=== PATIENT | female | born 1940 | race Caucasian/White ===

== ENCOUNTER 2017-04-23 15:31 | Emergency (ER) | payer MEDICARE, MEDICAID ==
[2017-04-23 15:47] VITALS: BMI 40.6
--- NOTE | 2017-04-23 15:56 | ED PDOC ---
Arrival/HPI - General Chief Complaint: Lower Extremity Problem/Injury Time Seen by Provider: 04/23/17 15:49 Historian: Patient - History of Present Illness Narrative History of Present Illness (Text): 04/23/17 15:42 A 76 year old female presents to the emergency department complaining of left toe pain, swelling and bruising after a mechanical fall 4 days ago. Patient denies any chest pain, head trauma, loss of consciousness, or other complaints at this time. Patient does not want any pain medication at this time. PMD: Dr. Frederick Time/Duration: Other (4 days) Symptom Onset: Sudden Symptom Course: Unchanged Quality: Other Activities at Onset: Rest Context: Home Past Medical History - Provider Review Nursing Documentation Reviewed: Yes - Infectious Disease Hx of Infectious Diseases: None - Cardiac Hx Cardiac Disorders: Yes Hx Cardiac Arrhythmia: Yes Hx AR: Yes ("MANY YEARS AGO") Hx Hypertension: Yes Hx Peripheral Edema: Yes - Pulmonary Hx Respiratory Disorders: Yes Hx Asthma: Yes (NEVER HOSIPALIZED) - Neurological Hx Neurological Disorder: Yes ("FORGETFULLNESS AT TIMES") - HEENT Hx HEENT Disorder: Yes Hx Cataracts: Yes (BILAT.) Other/Comment: HX: TONSILLECTOMY - Renal Hx Renal Disorder: No - Endocrine/Metabolic Hx Endocrine Disorders: Yes Hx Diabetes Mellitus Type 2: Yes - Hematological/Oncological Hx Blood Disorders: Yes Hx Anemia: Yes - Integumentary Hx Dermatological Disorder: Yes Other/Comment: HX: LUMP ON HEAD REMOVED-NO CANCER. HX: 2 LUMPS ON RIGHT RING FINGER-REMOVED - Musculoskeletal/Rheumatological Hx Musculoskeletal Disorders: Yes Hx Arthritis: Yes Hx Back Pain: Yes Hx Degenerative Joint Disease: Yes (KNEES-BILAT. KNEE REPLACEMENTS DONE) Hx Falls: Yes Hx Fractures: Yes (LEFT FOOT) Hx Herniated Disk: Yes (LOWER BACK) Hx Osteoporosis: Yes Hx Rheumatoid Arthritis: Yes Other/Comment: HX: CARPAL TUNNEL SYNDROME- RIGHT. - Gastrointestinal Hx Gastrointestinal Disorders: Yes Hx Gall Bladder Disease: Yes Hx Gastritis: Yes - Genitourinary/Gynecological Hx Genitourinary Disorders: No - Psychiatric Hx Psychophysiologic Disorder: No Hx Substance Use: No - Past Surgical History Past Surgical History: Non-Contributing - Surgical History Hx Appendectomy: Yes Hx Breast Biopsy: Yes (RIGHT BREAST -LUMPECTOMY) Hx Cataract Extraction: Yes (RIGHT EYE) Hx Cholecystectomy: Yes Hx Musculoskeletal Surgery: Yes (RIGHT CARPAL TUNNEL REPAIR) Hx Orthopedic Surgery: Yes (BILAT. KNEE REPLACEMENTS) Hx Tonsillectomy: Yes Other/Comment: HX: 2 LUMPS ON RIGHT RING FINGER REMOVED-NO CANCER. HX: LUMP ON HEAD REMOVED-NO CANCER - Anesthesia Hx Anesthesia: Yes Hx Anesthesia Reactions: Yes (N/V) Hx Malignant Hyperthermia: No - Suicidal Assessment Feels Threatened In Home Enviroment: No Family/Social History - Physician Review Nursing Documentation Reviewed: Yes Family/Social History: Unknown Family HX Smoking Status: Never Smoked Hx Alcohol Use: No Hx Substance Use: No Allergies/Home Meds Allergies/Adverse Reactions: Allergies No Known Allergies Allergy (Verified 12/03/13 19:32) Home Medications: Home Meds Medication Instructions Recorded Confirmed Alendronate [Fosamax] 70 mg PO QWK 12/03/13 01/03/17 Sitagliptin Phos/Metformin HCl 1 tab PO BID 12/03/13 09/06/16 [Janumet Xr 50-500 mg Tablet] Albuterol HFA [Ventolin HFA 90 2 puff IH Q6H PRN 08/29/16 01/03/17 mcg/actuation (8 g)] Aspirin [Ecotrin] 81 mg PO DAILY 08/29/16 01/03/17 Atorvastatin [Lipitor] 20 mg PO HS 08/29/16 01/03/17 Calcium Carbonate/Vitamin D3 1 tab PO BID 08/29/16 01/03/17 [Calcium 600 + Vit D Tablet] Diclofenac Sodium [Voltaren] 100 gm TP DAILY 08/29/16 01/03/17 Donepezil HCl [Aricept] 10 mg PO DAILY 08/29/16 01/03/17 Esomeprazole Magnesium [Nexium] 40 mg PO DAILY 08/29/16 01/03/17 Folic Acid 1 mg PO DAILY 08/29/16 01/03/17 Gabapentin [Neurontin] 300 mg PO BID 08/29/16 01/03/17 Hydrochlorothiazide [Microzide] 12.5 mg PO DAILY 08/29/16 01/03/17 Ibuprofen [Motrin] 600 mg PO TID PRN 08/29/16 01/03/17 Metoprolol Tartrate [Lopressor] 25 mg PO BID 08/29/16 01/03/17 Multivitamin [Multivitamins] 1 each PO DAILY 08/29/16 01/03/17 Potassium Chloride [Klor-Con 10] 10 meq PO DAILY 08/29/16 01/03/17 Ranolazine [Ranexa] 500 mg PO BID 08/29/16 01/03/17 Sucralfate [Carafate] 1 gm PO DAILY 08/29/16 01/03/17 amLODIPine [Norvasc] 5 mg PO DAILY 08/29/16 01/03/17 Home Med 1 tab PO DAILY 01/03/17 01/03/17 Physical Exam - Physical Exam Narrative Physical Exam (Text): - Review of Systems Constitutional: Normal. absent: Fatigue, Weight Change, Fevers Eyes: Normal ENT: Normal Respiratory: Normal absent: SOB, Cough, Sputum Cardiovascular: Normal absent: Chest pain, Palpitations, Syncope Gastrointestinal: Normal absent: Abdominal pain, Diarrhea, Nausea, Vomiting Genitourinary: Normal. absent: Dysuria, Frequency, Hematuria Musculoskeletal: pain/swelling/bruising to the left great toe. absent: Arthralgias, Back Pain, Neck Pain Skin: Normal Neurological: Normal absent: Focal Weakness Endocrine: Normal Hemo/Lymphatic: Normal Psychiatric: Normal - Physical exam Patient appears age appropriate, speaking full sentences without difficulty. - Systems Exam Head: Present: Atraumatic, Normocephalic Pupils: Present: PERRL Extraocular Muscles: Present: EOMI Conjunctiva: Present: Normal Mouth: Present: Moist Mucous Membranes Neck: Present: Normal Range of Motion. No: MIDLINE TENDERNESS, Paraspinal Tenderness Respiratory/Chest: Present: Clear to Auscultation, Good Air Exchange. No: Respiratory Distress, Accessory Muscle Use, Tachypneic Cardiovascular: Present: Regular Rate and Rhythm, Normal S1, S2, Peripheral Pulses Present. No: Murmurs Abdomen: Present: Normal Bowel Sounds, No: Tenderness, Peritoneal Signs, Rebound, Guarding, Distention Back: Present: Normal Inspection. No: Midline Tenderness, Paraspinal Tenderness Upper Extremity: Present: Normal Inspection. No: Cyanosis, Edema Lower Extremity: Present: Diffuse ecchymosis to the left great toe but no swelling. Distal neurovascular intact. No: Edema Neurological: Present: GCS=15, Speech Normal, cranial nerves II through XII fully intact with no cerebellar abnormality, neuro-sensory fully intact. No focal neurological deficits. Skin: Present: Warm, Dry, Normal Color. No: Rashes Lymphatic: Present: OX3, NI, NC Psychiatric: Present: Alert, Oriented x 3, Normal Insight, Normal Concentration Head atraumatic. No nasal bone deformity or tenderness, no facial or jaw pain/ swelling. No neck midline tenderness, thoracic and lumbar spine with no midline tenderness. Pt moving b/l upper and lower extremities without difficulty, 5/5 strength, with full active and passive ROM. Diffuse ecchymosis to the left great toe but no swelling. Distal neurovasc fully intact. Abd soft/nt/nd, no hematomas, no peritoneal signs. Neg. pelvic rock. Vital Signs Reviewed: Yes Vital Signs Temp Pulse Resp BP Pulse Ox 04/23/17 15:31 98.1 F 60 19 146/68 96 Medical Decision Making ED Course and Treatment: 04/23/17 15:42 Impression: A 76 year old female with left great toe pain/swelling/ecchymosis. On physical examination the patient has diffuse ecchymosis of the left great toe but no swelling. Differential Diagnosis include but are not limited to: fracture, sprain Plan: -- Left great toe x-ray -- Reassess and disposition Progress Notes: 04/23/17 16:44 Patient's x-ray shows no acute fractures or dislocations. Interpreted by me. Ambulates with a walker without difficulty States that she feels comfortable being discharged home with outpatient follow- up Pt states she understands to return to the ER right away for new or worsening symptoms or for inability to f/u with PMD or specialist as instructed. Patient states that she fully agrees with and understands discharge instructions. States that she agrees with the plan and disposition. Verbalized and repeated discharge instructions and plan. I have given the patient opportunity to ask any additional questions. - RAD Interpretation Radiology Orders: 04/23/17 15:49 FOOT LEFT GREAT TOE ROUTINE [RAD] Stat - Scribe Statement The provider has reviewed the documentation as recorded by the Aldenibgem Zimmerman Provider Scribe Attestation: All medical record entries made by the Scribe were at my direction and personally dictated by me. I have reviewed the chart and agree that the record accurately reflects my personal performance of the history, physical exam, medical decision making, and the department course for this patient. I have also personally directed, reviewed, and agree with the discharge instructions and disposition. Disposition/Present on Arrival - Present on Arrival Any Indicators Present on Arrival: No History of DVT/PE: No History of Uncontrolled Diabetes: No Urinary Catheter: No History of Decub. Ulcer: No History Surgical Site Infection Following: None - Disposition Have Diagnosis and Disposition been Completed?: Yes Diagnosis: Toe injury Disposition: HOME/ ROUTINE Disposition Time: 16:45 Patient Plan: Discharge Condition: GOOD Discharge Instructions (ExitCare): Foot Contusion (ED) Additional Instructions: PLEASE RETURN TO THE EMERGENCY DEPARTMENT FOR NEW OR WORSENING SYMPTOMS. RETURN RIGHT AWAY IF YOU CANNOT FOLLOW UP WITH YOUR PRIMARY CARE DOCTOR, CLINIC, OR SPECIALIST IN 1-2 DAYS. Please take [id number] Motrin or Tylenol for pain Referrals: Ricardo Frederick MD [Primary Care Provider] - Follow up with primary Marah Sanchez DPM [Staff Provider] - Follow up with primary
[2017-04-23 16:05] VITALS: BP 146/68; PULSE 60; RESP 19; TEMP 98.1; O2SAT 96
--- NOTE | 2017-04-24 09:09 | RAD ---
PROCEDURE: Radiographs of the left great toe. TECHNIQUE:: AP radiograph of the left foot, with oblique and lateral view of the left great toe. COMPARISON: None. FINDINGS: BONES: There is an acute transverse nondisplaced fracture in the midshaft of the distal phalanx of the great toe. Bone alignment and mineralization are normal. There is no bone destruction. JOINTS: There is severe degenerative osteoarthrosis in the 3rd PIP joint and moderate degenerative osteoarthrosis the 1st and 4th PIP joints. There is mild degenerative osteoarthrosis in the 1st MTP joint. SOFT TISSUES: Is mild soft tissue swelling in the great toe OTHER FINDINGS: None. IMPRESSION: Acute transverse nondisplaced fracture in the midshaft of the distal phalanx of the great toe.
--- NOTE | 2017-04-24 15:33 | ED PDOC ---
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
== END 2017-04-23 16:50 | disposition home or self-care (01) ==
LOC: ED 15:31
DX: S99.922A Unspecified injury of left foot, initial encounter (principal); W19.XXXA Unspecified fall, initial encounter

== ENCOUNTER 2017-04-24 16:13 | Emergency (ER) | payer MEDICARE, MEDICAID ==
[2017-04-24 16:14] VITALS: BMI 40.6
[2017-04-24 16:32] VITALS: BP 127/82; PULSE 60; RESP 19; TEMP 98.1; O2SAT 95
--- NOTE | 2017-04-24 16:32 | ED PDOC ---
Arrival/HPI - General Chief Complaint: Lower Extremity Problem/Injury Time Seen by Provider: 04/24/17 16:29 Historian: Patient - History of Present Illness Narrative History of Present Illness (Text): 04/24/17 16:29 76 y/o female, called back by me due to the positive findings noted on the injured toe show fracture on the great toe s/p hit on the edge of the furniture. Pt. has no numbness or tingling, no headache or night sweat, no calf pain, no other medical or psychological complaints. Past Medical History - Provider Review Nursing Documentation Reviewed: Yes - Infectious Disease Hx of Infectious Diseases: None - Cardiac Hx Cardiac Disorders: Yes Hx Cardiac Arrhythmia: Yes Hx WI: Yes ("MANY YEARS AGO") Hx Hypertension: Yes Hx Peripheral Edema: Yes - Pulmonary Hx Respiratory Disorders: Yes Hx Asthma: Yes (NEVER HOSIPALIZED) - Neurological Hx Neurological Disorder: Yes ("FORGETFULLNESS AT TIMES") - HEENT Hx HEENT Disorder: Yes Hx Cataracts: Yes (BILAT.) - Renal Hx Renal Disorder: No - Endocrine/Metabolic Hx Endocrine Disorders: Yes Hx Diabetes Mellitus Type 2: Yes - Hematological/Oncological Hx Blood Disorders: Yes Hx Anemia: Yes - Integumentary Hx Dermatological Disorder: Yes Other/Comment: HX: LUMP ON HEAD REMOVED-NO CANCER. HX: 2 LUMPS ON RIGHT RING FINGER-REMOVED - Musculoskeletal/Rheumatological Hx Musculoskeletal Disorders: Yes Hx Arthritis: Yes Hx Back Pain: Yes Hx Degenerative Joint Disease: Yes (KNEES-BILAT. KNEE REPLACEMENTS DONE) Hx Falls: Yes Hx Fractures: Yes (LEFT FOOT) Hx Herniated Disk: Yes (LOWER BACK) Hx Osteoporosis: Yes Hx Rheumatoid Arthritis: Yes Other/Comment: CARPAL TUNNEL SYNDROME- RIGHT. - Gastrointestinal Hx Gastrointestinal Disorders: Yes Hx Gall Bladder Disease: Yes Hx Gastritis: Yes - Genitourinary/Gynecological Hx Genitourinary Disorders: No - Psychiatric Hx Psychophysiologic Disorder: No Hx Substance Use: No - Past Surgical History Past Surgical History: Non-Contributing - Surgical History Hx Appendectomy: Yes Hx Breast Biopsy: Yes (RIGHT BREAST -LUMPECTOMY) Hx Cataract Extraction: Yes (RIGHT EYE) Hx Cholecystectomy: Yes Hx Musculoskeletal Surgery: Yes (RIGHT CARPAL TUNNEL REPAIR) Hx Orthopedic Surgery: Yes (BILAT. KNEE REPLACEMENTS) Hx Tonsillectomy: Yes Other/Comment: 2 LUMPS ON RIGHT RING FINGER REMOVED-NO CANCER. LUMP ON HEAD REMOVED-NO CANCER - Anesthesia Hx Anesthesia: Yes Hx Anesthesia Reactions: Yes (N/V) Hx Malignant Hyperthermia: No - Suicidal Assessment Feels Threatened In Home Enviroment: No Family/Social History - Physician Review Nursing Documentation Reviewed: Yes Family/Social History: Unknown Family HX Smoking Status: Never Smoked Hx Alcohol Use: No Hx Substance Use: No Allergies/Home Meds Allergies/Adverse Reactions: Allergies No Known Allergies Allergy (Verified 12/03/13 19:32) Home Medications: Home Meds Medication Instructions Recorded Confirmed Alendronate [Fosamax] 70 mg PO QWK 12/03/13 04/24/17 Sitagliptin Phos/Metformin HCl 1 tab PO BID 12/03/13 04/24/17 [Janumet Xr 50-500 mg Tablet] Albuterol HFA [Ventolin HFA 90 2 puff IH Q6H PRN 08/29/16 04/24/17 mcg/actuation (8 g)] Aspirin [Ecotrin] 81 mg PO DAILY 08/29/16 04/24/17 Atorvastatin [Lipitor] 20 mg PO HS 08/29/16 04/24/17 Calcium Carbonate/Vitamin D3 1 tab PO BID 08/29/16 04/24/17 [Calcium 600 + Vit D Tablet] Diclofenac Sodium [Voltaren] 100 gm TP DAILY 08/29/16 04/24/17 Donepezil HCl [Aricept] 10 mg PO DAILY 08/29/16 04/24/17 Esomeprazole Magnesium [Nexium] 40 mg PO DAILY 08/29/16 04/24/17 Folic Acid 1 mg PO DAILY 08/29/16 04/24/17 Gabapentin [Neurontin] 300 mg PO BID 08/29/16 04/24/17 Hydrochlorothiazide [Microzide] 12.5 mg PO DAILY 08/29/16 04/24/17 Metoprolol Tartrate [Lopressor] 25 mg PO BID 08/29/16 04/24/17 Multivitamin [Multivitamins] 1 each PO DAILY 08/29/16 04/24/17 Potassium Chloride [Klor-Con 10] 10 meq PO DAILY 08/29/16 04/24/17 Ranolazine [Ranexa] 500 mg PO BID 08/29/16 04/24/17 Sucralfate [Carafate] 1 gm PO DAILY 08/29/16 04/24/17 amLODIPine [Norvasc] 5 mg PO DAILY 08/29/16 04/24/17 Review of Systems - Review of Systems Constitutional: absent: Fatigue, Fevers Respiratory: absent: SOB, Cough Cardiovascular: absent: Chest Pain Gastrointestinal: absent: Abdominal Pain, Diarrhea, Nausea, Vomiting Musculoskeletal: Arthralgias. absent: Back Pain, Neck Pain Skin: absent: Rash, Pruritis, Skin Lesions, Laceration Neurological: absent: Headache, Dizziness Physical Exam Vital Signs Reviewed: Yes Vital Signs Temp Pulse Resp BP Pulse Ox 04/24/17 16:25 98.1 F 60 19 127/82 95 Temperature: Afebrile Blood Pressure: Normal Pulse: Regular Respiratory Rate: Normal Appearance: Positive for: Well-Appearing, Non-Toxic, Comfortable Pain Distress: Mild Mental Status: Positive for: Alert and Oriented X 3 - Systems Exam Head: Present: Atraumatic, Normocephalic Neck: Present: Normal Range of Motion Respiratory/Chest: Present: Clear to Auscultation, Good Air Exchange. No: Respiratory Distress Cardiovascular: Present: Regular Rate and Rhythm, Normal S1, S2 Abdomen: Present: Normal Bowel Sounds. No: Tenderness, Distention Lower Extremity: Present: Other (Lt. foot: visible and +ttp with ecchymosis noted on the distal aspect of the phalanx, skin intact, no laceration or abrasion, FROM withou limitation, no calf tenderness, negative waters signs, + DPPT pulses, neurovascular intact. ) Medical Decision Making ED Course and Treatment: 04/24/17 16:34 -ferdinand tapping applied with neurovascular intact, post op shoe, pt. has walkers , advised non-weight bearing to the injured toe. -Discharge home with ferdinand tapping, post op shoe, non-weight bearing to the injured toe, take tylenol for pain as needed, follow up with your own pmd and labor arbitrator hearing office within 2 days, return to the ER for any new or worsening signs or symptoms. - RAD Interpretation Radiology Orders: Accession No. : [id number] Patient Name / ID : IZABELA Honeycutt / [id number] Exam Date : 04/23/2017 16:07:08 ( Approved ) Study Comment : Sex / Age : F / 76Y Creator : Irma Wade MD Dictator : Irma Wade MD Supervisor Plastic Sheets : Patrol Guard : Irma Wade MD Approver2 : Report Date : 04/24/2017 09:07:16 My Comment : PROCEDURE: Radiographs of the left great toe. TECHNIQUE:: AP radiograph of the left foot, with oblique and lateral view of the left great toe. COMPARISON: None. FINDINGS: BONES: There is an acute transverse nondisplaced fracture in the midshaft of the distal phalanx of the great toe. Bone alignment and mineralization are normal. There is no bone destruction. JOINTS: There is severe degenerative osteoarthrosis in the 3rd PIP joint and moderate degenerative osteoarthrosis the 1st and 4th PIP joints. There is mild degenerative osteoarthrosis in the 1st MTP joint. SOFT TISSUES: Is mild soft tissue swelling in the great toe OTHER FINDINGS: None. IMPRESSION: Acute transverse nondisplaced fracture in the midshaft of the distal phalanx of the great toe. 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 Disposition/Present on Arrival - Present on Arrival Any Indicators Present on Arrival: No History of DVT/PE: No History of Uncontrolled Diabetes: No Urinary Catheter: No History of Decub. Ulcer: No History Surgical Site Infection Following: None - Disposition Have Diagnosis and Disposition been Completed?: Yes Diagnosis: Toe fracture Disposition: HOME/ ROUTINE Disposition Time: 16:30 Patient Plan: Discharge Condition: GOOD Additional Instructions: Discharge home with ferdinand tapping, post op shoe, non-weight bearing to the injured toe, take tylenol for pain as needed, follow up with your own pmd and labor arbitrator hearing office within 2 days, return to the ER for any new or worsening signs or symptoms. Referrals: Ranjeet Danielson DPM [Staff Provider] - [place] up with primary [facility] [place] - Follow up with primary Forms: WORK NOTE
== END 2017-04-24 16:40 | disposition home or self-care (01) ==
LOC: ED 16:13
DX: S92.422A Displaced fracture of distal phalanx of left great toe, initial encounter for closed fracture (principal); W22.03XA Walked into furniture, initial encounter

== ENCOUNTER 2017-05-16 16:49 | Emergency (ER) | payer MEDICARE, MEDICAID ==
[2017-05-16 16:49] VITALS: BMI 40.6
[2017-05-16 17:03] VITALS: BP 139/65; PULSE 67; RESP 16; TEMP 98.3; O2SAT 98
--- NOTE | 2017-05-16 18:04 | ED PDOC ---
Arrival/HPI - General Chief Complaint: Abnormal Skin Integrity Time Seen by Provider: 05/16/17 17:08 Historian: Patient - History of Present Illness Narrative History of Present Illness (Text): 05/16/17 19:32 76 yo F c/o several day h/o red itchy painful rash to the lower abdomen, hips and buttocks. 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 States that she is here in the ER today because the rash is very itchy and has a burning sensation to them, she feels that the creams rx by her railroad dispatcher is not improving her symptoms, and she could not obtain an appointment today to see her skin doctor. Denies any fever, chills, new medications, new food, changing her soaps / lotions, SOB , facial / tongue swelling. Otherwise has no other complaints. Past Medical History - Provider Review Nursing Documentation Reviewed: Yes - Infectious Disease Hx of Infectious Diseases: None - Cardiac Hx Cardiac Disorders: Yes Hx Cardiac Arrhythmia: Yes Hx DC: Yes ("MANY YEARS AGO") Hx Hypertension: Yes Hx Peripheral Edema: Yes - Pulmonary Hx Respiratory Disorders: Yes Hx Asthma: Yes (NEVER HOSIPALIZED) - Neurological Hx Neurological Disorder: Yes ("FORGETFULLNESS AT TIMES") - HEENT Hx HEENT Disorder: Yes Hx Cataracts: Yes (BILAT.) - Renal Hx Renal Disorder: No - Endocrine/Metabolic Hx Endocrine Disorders: Yes Hx Diabetes Mellitus Type 2: Yes - Hematological/Oncological Hx Blood Disorders: Yes Hx Anemia: Yes - Integumentary Hx Dermatological Disorder: Yes Other/Comment: HX: LUMP ON HEAD REMOVED-NO CANCER. HX: 2 LUMPS ON RIGHT RING FINGER-REMOVED - Musculoskeletal/Rheumatological Hx Musculoskeletal Disorders: Yes Hx Arthritis: Yes Hx Back Pain: Yes Hx Degenerative Joint Disease: Yes (KNEES-BILAT. KNEE REPLACEMENTS DONE) Hx Falls: Yes Hx Fractures: Yes (LEFT FOOT) Hx Herniated Disk: Yes (LOWER BACK) Hx Osteoporosis: Yes Hx Rheumatoid Arthritis: Yes Other/Comment: CARPAL TUNNEL SYNDROME- RIGHT. - Gastrointestinal Hx Gastrointestinal Disorders: Yes Hx Gall Bladder Disease: Yes Hx Gastritis: Yes - Genitourinary/Gynecological Hx Genitourinary Disorders: No - Psychiatric Hx Psychophysiologic Disorder: No Hx Substance Use: No - Past Surgical History Past Surgical History: Non-Contributing - Surgical History Hx Appendectomy: Yes Hx Breast Biopsy: Yes (RIGHT BREAST -LUMPECTOMY) Hx Cataract Extraction: Yes (RIGHT EYE) Hx Cholecystectomy: Yes Hx Musculoskeletal Surgery: Yes (RIGHT CARPAL TUNNEL REPAIR) Hx Orthopedic Surgery: Yes (BILAT. KNEE REPLACEMENTS) Hx Tonsillectomy: Yes Other/Comment: 2 LUMPS ON RIGHT RING FINGER REMOVED-NO CANCER. LUMP ON HEAD REMOVED-NO CANCER - Anesthesia Hx Anesthesia: Yes Hx Anesthesia Reactions: Yes (N/V) Hx Malignant Hyperthermia: No - Suicidal Assessment Feels Threatened In Home Enviroment: No Family/Social History - Physician Review Nursing Documentation Reviewed: Yes Family/Social History: No Known Family HX Smoking Status: Never Smoked Hx Alcohol Use: No Hx Substance Use: No Allergies/Home Meds Allergies/Adverse Reactions: Allergies No Known Allergies Allergy (Verified 05/16/17 17:03) Home Medications: Home Meds Medication Instructions Recorded Confirmed Alendronate [Fosamax] 70 mg PO QWK 12/03/13 05/16/17 Albuterol HFA [Ventolin HFA 90 2 puff IH Q6H PRN 08/29/16 05/16/17 mcg/actuation (8 g)] Aspirin [Ecotrin] 81 mg PO DAILY 08/29/16 05/16/17 Atorvastatin [Lipitor] 20 mg PO HS 08/29/16 05/16/17 Calcium Carbonate/Vitamin D3 1 tab PO BID 08/29/16 05/16/17 [Calcium 600 + Vit D Tablet] Diclofenac Sodium [Voltaren] 100 gm TP DAILY 08/29/16 05/16/17 Donepezil HCl [Aricept] 10 mg PO DAILY 08/29/16 05/16/17 Folic Acid 1 mg PO DAILY 08/29/16 05/16/17 Gabapentin [Neurontin] 300 mg PO BID 08/29/16 05/16/17 Hydrochlorothiazide [Microzide] 12.5 mg PO DAILY 08/29/16 05/16/17 Metoprolol Tartrate [Lopressor] 25 mg PO BID 08/29/16 05/16/17 Multivitamin [Multivitamins] 1 each PO DAILY 08/29/16 05/16/17 Ranolazine [Ranexa] 500 mg PO BID 08/29/16 05/16/17 Sucralfate [Carafate] 1 gm PO DAILY 08/29/16 05/16/17 amLODIPine [Norvasc] 5 mg PO DAILY 08/29/16 05/16/17 Ammonium Lactate 12% [Lac-Hydrin] 1 appl TP DAILY 05/16/17 05/16/17 Betamethasone/Propylene Glyc 15 gm TP DAILY 05/16/17 05/16/17 [Betamethasone Dp Aug 0.05% Crm] Celecoxib [Celebrex] 200 mg PO DAILY 05/16/17 05/16/17 Clotrimazole 1% Cream [Lotrimin 1% 0 applic TOP DAILY 05/16/17 05/16/17 CREAM] Esomeprazole Magnesium [Nexium] 40 mg PO DAILY 05/16/17 05/16/17 Ferrous Sulfate [Feosol] 325 mg PO DAILY 05/16/17 05/16/17 Folic Acid 1 mg PO DAILY 05/16/17 05/16/17 Ibuprofen 100 mg PO TID 05/16/17 05/16/17 Methotrexate Sodium [Trexall] 5 mg PO QWK 05/16/17 05/16/17 Potassium Chloride [Klor-Con 10] 10 meq PO DAILY 05/16/17 05/16/17 Sitagliptin Phos/Metformin HCl 1 each PO BID 05/16/17 05/16/17 [Janumet 50-500 mg Tablet] hydroCHLOROthiazide [Microzide] 12.5 mg PO DAILY 05/16/17 05/16/17 Review of Systems - Review of Systems Constitutional: Normal. absent: Fatigue, Weight Change, Fevers ENT: Normal. absent: Hearing Changes, Tinnitus, Sinus Congestion Respiratory: Normal. absent: SOB, Cough, Sputum Musculoskeletal: Normal. absent: Arthralgias, Back Pain, Neck Pain Skin: Normal, Rash. absent: Pruritis, Skin Lesions Physical Exam Vital Signs Reviewed: Yes Vital Signs Temp Pulse Resp BP Pulse Ox 05/16/17 17:03 98.3 F 67 16 139/65 98 05/16/17 17:02 98.3 F 67 16 139/65 98 Temperature: Afebrile Blood Pressure: Normal Pulse: Regular Respiratory Rate: Normal Appearance: Positive for: Well-Appearing, Non-Toxic, Comfortable Pain Distress: None Mental Status: Positive for: Alert and Oriented X 3 - Systems Exam Head: Present: Atraumatic, Normocephalic Pupils: Present: PERRL Extroacular Muscles: Present: EOMI Conjunctiva: Present: Normal Ears: Present: Normal Mouth: Present: Moist Mucous Membranes, Normal Lips Pharnyx: Present: Normal ((+) several erythematous nontender circular lesions with a skin colored central clearing located on the buttock, hips and lower abdomen) Neck: Present: Normal Range of Motion. No: MIDLINE TENDERNESS Respiratory/Chest: Present: Clear to Auscultation, Good Air Exchange. No: Respiratory Distress, Accessory Muscle Use Cardiovascular: Present: Regular Rate and Rhythm, Normal S1, S2. No: Murmurs Back: Present: Normal Inspection. No: Midline Tenderness Upper Extremity: Present: Normal Inspection. No: Edema Lower Extremity: Present: Normal Inspection. No: Edema, Tenderness Neurological: Present: GCS=15, CN II-XII Intact, Speech Normal Skin: Present: Warm, Dry, Rashes, Normal Color Medical Decision Making ED Course and Treatment: 05/16/17 18:04 76 yo F c/o several day h/o red itchy painful rash to the lower abdomen, hips and buttocks. Based on history and exam, to consider tinea infection, contact dermatitis, and herpes shingles. Pt medicated with prednisone and benadryl po. Pt advised that she must f/u with her railroad dispatcher regarding her symptoms as the ER can only provide temporary relief to her symptoms. Pt verbalize understanding of this limitation and states that she will try to see her railroad dispatcher tomorrow without fail. Otherwise advised to continue current medication Rx by her skin doctor. Advised to return to the ER at any time for any new or worsening symptoms. - Medication Orders Current Medication Orders: Discontinued Medications Diphenhydramine HCl (Benadryl) 50 mg PO STAT STA Stop: 05/16/17 18:01 Last Admin: 05/16/17 18:49 Dose: Prednisone (Prednisone Tab) 40 mg PO STAT STA Stop: 05/16/17 18:01 Last Admin: 05/16/17 18:49 Dose: - PA / LITERARY WRITER / Resident Statement / has reviewed & agrees with the documentation as recorded. Disposition/Present on Arrival - Present on Arrival Any Indicators Present on Arrival: No History of DVT/PE: No History of Uncontrolled Diabetes: No Urinary Catheter: No History of Decub. Ulcer: No History Surgical Site Infection Following: None - Disposition Have Diagnosis and Disposition been Completed?: Yes Diagnosis: Rash Disposition: HOME/ ROUTINE Disposition Time: 17:40 Patient Plan: Discharge Condition: STABLE Discharge Instructions (ExitCare): Acute Rash (ED) Print Language: MALAYSIAN Additional Instructions: Follow up with your railroad dispatcher in 1-2 days without fail. Take medication as prescribed and continue current medication that was prescribed by your railroad dispatcher. Return to the ER at any time for any new or worsening symptoms. Prescriptions: DiphenhydrAMINE [Benadryl] 25 mg PO TID #20 cap predniSONE [predniSONE Tab] 40 mg PO DAILY #8 tab Referrals: Ricardo Frederick MD [Primary Care Provider] - Follow up with primary
== END 2017-05-16 18:20 | disposition home or self-care (01) ==
LOC: ED 16:49
DX: R21 Rash and other nonspecific skin eruption (principal)